=== PATIENT | male | born 1970 | race Caucasian/White ===

== ENCOUNTER 2017-02-12 09:41 | Emergency (ER) | payer BC ==
[2017-02-12 09:48] VITALS: BP 129/83; BMI 24.7
[2017-02-12] MEDS ORDERED: XYLOCAINE 1 % (PLAIN) IJ ONE (10:30)
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
--- NOTE | 2017-02-12 15:45 | RAD ---
Three views of the left hand Indication: Left hand pain with injury to index finger. Findings: No acute fracture or dislocation within the left hand. No localizing soft tissue swelling. No significant degenerative change within the left hand. Radiocarpal joint alignment is maintained. Impression: No radiographic abnormality identified within the left hand. Reported By:
== END 2017-02-12 11:48 | disposition home or self-care (01) ==
LOC: ER 09:44
DX: S60.10XA Contusion of unspecified finger with damage to nail, initial encounter (principal); X58.XXXA Exposure to other specified factors, initial encounter; Y92.9 Unspecified place or not applicable
CPT/HCPCS: 73130; 99282; 99283

== ENCOUNTER 2019-12-03 11:53 | Observation (INO) ==
[2019-12-03] MEDS ORDERED: VITAMIN D (1.25MG) PO SCH (12:15)
[2019-12-03] MEDS ORDERED: ASCORBIC ACID INJ MULTI-DOSE VIAL IM SCH ×2 (12:15→16:15)
[2019-12-03] MEDS ORDERED: REMDESIVIR (INVESTIGATIONAL DRUG GS-5734) IV ONE (12:16)
[2019-12-03] MEDS ORDERED: VITAMIN A PO SCH (12:30)
[2019-12-03] MEDS ORDERED: CORTEF PO SCH (13:00)
[2019-12-03] MEDS ORDERED: NS 1000 ML 1,000 ML IV SCH ×2 (13:00→17:00)
[2019-12-03] MEDS ORDERED: THIAMINE HCL INJ IM SCH (13:00)
[2019-12-03] MEDS ORDERED: LOVENOX INJ 40 MG SYR SC SCH (13:00)
[2019-12-03] MEDS ORDERED: NS 100 ML IV 100 ML with ASCORBIC ACID INJ MULTI-DOSE VIAL 1,500 MG IV SCH ×2 (15:30)
[2019-12-03 16:38] LABS: BASOPHILS # (AUTO) 0.2 X10^3/uL (0.0-0.1); BASOPHILS % (AUTO) 3.1 % (0.2-1.0); EOSINOPHILS # (AUTO) 0.1 x10^3/uL (0.0-0.2); EOSINOPHILS % (AUTO) 1.7 % (0.9-2.9); HEMATOCRIT 39.7 % (42.0-54.0); LYMPHOCYTES # (AUTO) 1.4 X10^3/uL (1.3-2.9); LYMPHOCYTES % (AUTO) 23.2 % (21.0-51.0); MEAN CORPUSCULAR HEMOGLOBIN 30.1 pg (27.0-34.0); MEAN CORPUSCULAR HGB CONC 35.4 g/dL (33.0-35.0); MEAN CORPUSCULAR VOLUME 85.1 fL (80.0-100.0); MEAN PLATELET VOLUME 8.2 fL (7.4-11.0); MONOCYTES # (AUTO) 0.3 x10^3/uL (0.3-0.8); MONOCYTES % (AUTO) 5.5 % (0.0-13.0); NEUTROPHILS # (AUTO) 4.1 x10^3/uL (2.2-4.8); NEUTROPHILS % (AUTO) 66.5 % (42.0-75.0); PLATELET COUNT 183 X10^3/uL (150.0-450.0); RED BLOOD COUNT 4.67 X10^6/uL (4.7-6.0); RED CELL DISTRIBUTION WIDTH 13.4 % (11.6-16.5); WHITE BLOOD COUNT 6.1 X10^3/uL (3.6-10.0)
[2019-12-03] MEDS ORDERED: REMDESIVIR (INVESTIGATIONAL DRUG GS-5734) 100 MG in NS 250 ML IV 250 ML IV SCH (16:45)
[2019-12-03 16:50] LABS: ALANINE AMINOTRANSFERASE 28 Units/L (12-78); ALBUMIN 3.6 g/dL (3.4-5.0); ALKALINE PHOSPHATASE 102 Units/L (46-116); ASPARTATE AMINO TRANSFERASE 18 Units/L (15-37); BLOOD UREA NITROGEN 17 mg/dL (7-18); CALCIUM 8.7 mg/dL (8.5-10.1); CARBON DIOXIDE 32.7 mmol/L (21-32); CHLORIDE 103 mmol/L (98-107); CREATININE 1.02 mg/dL (0.70-1.30); SODIUM 139 mmol/L (136-145); TOTAL PROTEIN 6.4 g/dL (6.4-8.2); TROPONIN I < 0.02 ng/mL (0-1.5); eGFR NON BLACK RACES > 60 (>60)
[2019-12-03] MEDS ORDERED: NS 1000 ML 1,000 ML ONE (16:59)
[2019-12-03] MEDS ORDERED: NS 100 ML IV 100 ML IV ONE ×2 (17:14→21:48)
[2019-12-03] MEDS: NS 100 ML IV 100 ML with ASCORBIC ACID INJ MULTI-DOSE VIAL 1,500 MG IV SCH ×4 (17:37→22:21)
[2019-12-03] MEDS: NS 1000 ML 1,000 ML IV SCH (17:37)
[2019-12-03] MEDS ORDERED: THIAMINE HCL INJ ONE (17:42)
[2019-12-03] MEDS: CORTEF PO SCH ×2 (17:47→21:23)
[2019-12-03] MEDS: VITAMIN D (1.25MG) PO SCH (17:47)
[2019-12-03] MEDS: THIAMINE HCL INJ IVP SCH ×2 (17:48→21:24)
[2019-12-03] MEDS: ZINC SULFATE PO SCH ×2 (17:48→21:24)
[2019-12-03] MEDS: LOVENOX INJ 40 MG SYR SC SCH (17:48)
[2019-12-03] MEDS: PLAQUENIL PO SCH ×2 (18:27→21:24)
[2019-12-03] MEDS: VITAMIN A PO SCH (18:27)
--- NOTE | 2019-12-03 19:06 | RAD ---
HISTORYsob covid exposureSTUDYCHEST, 1 VIEWCOMPARISONNoneFINDINGSThe trachea is midline. The cardiac silhouette is unremarkable . The lungs are clear without focal infiltrate or effusion. The bony thorax is unremarkable.IMPRESSIONNo acute cardiopulmonary disease.Electronically signed by: Leonides Reese (Dec 03, 2019 19:05:37)
[2019-12-03] MEDS ORDERED: ZINC SULFATE PO SCH (21:00)
[2019-12-03] MEDS ORDERED: PLAQUENIL PO SCH (21:00)
[2019-12-03 21:12] VITALS: BMI 26.1
[2019-12-04] MEDS: NS 100 ML IV 100 ML with ASCORBIC ACID INJ MULTI-DOSE VIAL 1,500 MG IV SCH ×8 (04:42→22:00)
[2019-12-04] MEDS ORDERED: NS 100 ML IV 100 ML IV ONE ×4 (04:47→20:26)
[2019-12-04 05:41] LABS: BASOPHILS # (AUTO) 0.1 X10^3/uL (0.0-0.1); BASOPHILS % (AUTO) 2.3 % (0.2-1.0); EOSINOPHILS # (AUTO) 0.2 x10^3/uL (0.0-0.2); EOSINOPHILS % (AUTO) 2.5 % (0.9-2.9); HEMATOCRIT 40.4 % (42.0-54.0); HEMOGLOBIN 14.1 g/dL (13.5-18.0); LYMPHOCYTES # (AUTO) 1.5 X10^3/uL (1.3-2.9); LYMPHOCYTES % (AUTO) 23.5 % (21.0-51.0); MEAN CORPUSCULAR HEMOGLOBIN 29.9 pg (27.0-34.0); MEAN CORPUSCULAR VOLUME 85.5 fL (80.0-100.0); MEAN PLATELET VOLUME 8.3 fL (7.4-11.0); MONOCYTES # (AUTO) 0.3 x10^3/uL (0.3-0.8); MONOCYTES % (AUTO) 5.4 % (0.0-13.0); NEUTROPHILS # (AUTO) 4.2 x10^3/uL (2.2-4.8); NEUTROPHILS % (AUTO) 66.3 % (42.0-75.0); PLATELET COUNT 163 X10^3/uL (150.0-450.0); RED BLOOD COUNT 4.72 X10^6/uL (4.7-6.0); RED CELL DISTRIBUTION WIDTH 13.2 % (11.6-16.5); WHITE BLOOD COUNT 6.3 X10^3/uL (3.6-10.0)
[2019-12-04 06:07] LABS: ALANINE AMINOTRANSFERASE 27 Units/L (12-78); ALBUMIN 3.5 g/dL (3.4-5.0); ALKALINE PHOSPHATASE 102 Units/L (46-116); ASPARTATE AMINO TRANSFERASE 20 Units/L (15-37); BLOOD UREA NITROGEN 16 mg/dL (7-18); CALCIUM 8.8 mg/dL (8.5-10.1); CARBON DIOXIDE 34.3 mmol/L (21-32); CHLORIDE 103 mmol/L (98-107); CREATININE 0.97 mg/dL (0.70-1.30); SODIUM 141 mmol/L (136-145); TOTAL PROTEIN 6.4 g/dL (6.4-8.2); eGFR NON BLACK RACES > 60 (>60)
[2019-12-04] MEDS ORDERED: REMDESIVIR (INVESTIGATIONAL DRUG GS-5734) IV SCH (09:00)
[2019-12-04] MEDS: LOVENOX INJ 40 MG SYR SC SCH (10:58)
[2019-12-04] MEDS: CORTEF PO SCH ×4 (10:58→21:00)
[2019-12-04] MEDS: PLAQUENIL PO SCH ×2 (10:59→21:00)
[2019-12-04] MEDS: THIAMINE HCL INJ IVP SCH ×2 (11:00→21:00)
[2019-12-04] MEDS: ZINC SULFATE PO SCH ×2 (11:01→21:00)
[2019-12-04] MEDS: VITAMIN D (1.25MG) PO SCH (11:01)
[2019-12-04] MEDS: VITAMIN A PO SCH (11:04)
[2019-12-04] MEDS: REMDESIVIR (INVESTIGATIONAL DRUG GS-5734) 100 MG in NS 250 ML IV 250 ML IV SCH (11:34)
[2019-12-04] MEDS ORDERED: NORCO 10/325 TAB PO PRN (11:44)
[2019-12-04] MEDS: LEXAPRO PO SCH (13:08)
[2019-12-04] MEDS ORDERED: LEXAPRO ONE (13:09)
[2019-12-04] MEDS ORDERED: FIORICET TAB PO ONE (13:10)
[2019-12-04] MEDS: FIORICET TAB PO SCH ×2 (13:59→21:00)
[2019-12-04] MEDS: NS 1000 ML 1,000 ML IV SCH (17:46)
[2019-12-05] MEDS: NS 100 ML IV 100 ML with ASCORBIC ACID INJ MULTI-DOSE VIAL 1,500 MG IV SCH ×4 (05:03→10:47)
[2019-12-05] MEDS: REMDESIVIR (INVESTIGATIONAL DRUG GS-5734) 100 MG in NS 250 ML IV 250 ML IV SCH (08:45)
[2019-12-05] MEDS ORDERED: LEXAPRO ONE (08:58)
[2019-12-05] MEDS ORDERED: VITAMIN D3 25 mcg (1,000 UNITS) PO SCH ×2 (09:00)
[2019-12-05] MEDS ORDERED: VITAMIN A PO SCH ×2 (09:00)
[2019-12-05 09:05] LABS: BASOPHILS % (AUTO) 0.7 % (0.2-1.0); EOSINOPHILS # (AUTO) 0.1 x10^3/uL (0.0-0.2); EOSINOPHILS % (AUTO) 1.6 % (0.9-2.9); HEMATOCRIT 37.6 % (42.0-54.0); HEMOGLOBIN 13.3 g/dL (13.5-18.0); LYMPHOCYTES # (AUTO) 1.7 X10^3/uL (1.3-2.9); LYMPHOCYTES % (AUTO) 29.8 % (21.0-51.0); MEAN CORPUSCULAR HEMOGLOBIN 30.3 pg (27.0-34.0); MEAN CORPUSCULAR HGB CONC 35.4 g/dL (33.0-35.0); MEAN CORPUSCULAR VOLUME 85.7 fL (80.0-100.0); MEAN PLATELET VOLUME 8.5 fL (7.4-11.0); MONOCYTES # (AUTO) 0.3 x10^3/uL (0.3-0.8); MONOCYTES % (AUTO) 6.1 % (0.0-13.0); NEUTROPHILS # (AUTO) 3.5 x10^3/uL (2.2-4.8); NEUTROPHILS % (AUTO) 61.8 % (42.0-75.0); PLATELET COUNT 143 X10^3/uL (150.0-450.0); RED BLOOD COUNT 4.39 X10^6/uL (4.7-6.0); RED CELL DISTRIBUTION WIDTH 13.6 % (11.6-16.5); WHITE BLOOD COUNT 5.7 X10^3/uL (3.6-10.0)
[2019-12-05] MEDS: FIORICET TAB PO SCH (09:07)
[2019-12-05] MEDS: LEXAPRO PO SCH (09:07)
[2019-12-05] MEDS: ZINC SULFATE PO SCH (09:09)
[2019-12-05] MEDS: CORTEF PO SCH (09:10)
[2019-12-05] MEDS: PLAQUENIL PO SCH (09:10)
[2019-12-05] MEDS: THIAMINE HCL INJ IVP SCH (09:11)
[2019-12-05] MEDS: LOVENOX INJ 40 MG SYR SC SCH (09:11)
[2019-12-05 09:23] LABS: ALANINE AMINOTRANSFERASE 24 Units/L (12-78); ALBUMIN 3.2 g/dL (3.4-5.0); ALKALINE PHOSPHATASE 95 Units/L (46-116); ASPARTATE AMINO TRANSFERASE 15 Units/L (15-37); BLOOD UREA NITROGEN 15 mg/dL (7-18); CALCIUM 8.2 mg/dL (8.5-10.1); CARBON DIOXIDE 33.5 mmol/L (21-32); CHLORIDE 105 mmol/L (98-107); COR CA(FOR HYPOALB) 8.8 mg/dL (8.5-10.1); CREATININE 0.93 mg/dL (0.70-1.30); SODIUM 142 mmol/L (136-145); eGFR NON BLACK RACES > 60 (>60)
[2019-12-05 10:51] VITALS: BP 97/55
== END 2019-12-05 11:20 | disposition home or self-care (01) ==
LOC: ICU → UNDODISIN 12-05 11:20
PROVIDERS: ADMIT Obstetrics & Gynecology Obstetrics; ATTEND Obstetrics & Gynecology Obstetrics
DX: R50.9 Fever, unspecified; R51 Headache; F90.2 Attention-deficit hyperactivity disorder, combined type; Z20.828 Contact with and (suspected) exposure to other viral communicable diseases; R06.09 Other forms of dyspnea; M54.5 Low back pain
CPT/HCPCS: 36415; 71010; 71045; 80053; 84484; 85025; A4222; G0378; J1650; J3411; J7030; J7050